=== PATIENT | male | born 1995 | race Caucasian/White ===

== ENCOUNTER 2018-02-14 15:47 | Emergency (ER) | payer BC ==
[2018-02-14 16:07] VITALS: BP 137/73
--- NOTE | 2018-02-14 16:27 | UC ---
Epistaxis Nasal HPI - HPI Summary HPI Summary: This is a 23-year-old male who was hit in the nose last p.m. at [address] with a line [address] while playing softball. He was hit in the nose and sustained a vertical laceration over his nasal bridge. So had bilateral epistaxis. He denies loss of consciousness. Denies any other injury. There is no neck pain. The shot is up-to-date. As a history of a nasal fracture as a child. Today he has black eyes bilaterally. He no longer has any nasal bleeding. - History of Current Complaint Chief Complaint: UCLaceration Stated Complaint: NOSE INJURY Time Seen by Provider: 02/14/18 16:14 Hx Obtained From: Patient Onset/Duration: Sudden Onset Timing: Constant Severity Initially: Moderate Severity Currently: Mild Pain Intensity: 4 Pain Scale Used: 0-10 Numeric Character: Heavy Aggravating Factor(s): Nasal Trauma Alleviating Factor(s): Pressure, Position Associated Signs And Symptoms: Positive: Bruising - Allergies/Home Medications Allergies/Adverse Reactions: Allergies Allergy/AdvReac Type Severity Reaction Status Date / Time No Known Allergies Allergy Verified 02/14/18 16:04 Home Medications: Home Medications Ibuprofen TAB* [Motrin TAB* 800 MG] 800 mg PO ONCE 02/14/18 [History Confirmed 02/14/18] PMH/Surg Hx/FS Hx/Imm Hx - Surgical History Surgical History: None - Family History Known Family History: Positive: Hypertension - Social History Alcohol Use: None Substance Use Type: None Smoking Status (MU): Never Smoked Tobacco Review of Systems Constitutional: Negative Skin: Bruising Eyes: Negative ENT: Epistaxis Respiratory: Negative Cardiovascular: Negative Gastrointestinal: Negative Genitourinary: Negative Motor: Negative Neurovascular: Negative Musculoskeletal: Negative Neurological: Negative Psychological: Negative Is Patient Immunocompromised?: No All Other Systems Reviewed And Are Negative: Yes Physical Exam Triage Information Reviewed: Yes Appearance: Well-Appearing, No Pain Distress, Well-Nourished Vital Signs: Initial Vital Signs Temp 98 F 02/14/18 16:02 Pulse 59 02/14/18 16:02 Resp 17 02/14/18 16:02 BP 137/73 02/14/18 16:02 Pulse Ox 100 02/14/18 16:02 Vital Signs Reviewed: Yes Eyes: Positive: Conjunctiva Clear, Other: - No hyphema. Does have bilateral INFRA orbital ecchymosis. ENT: Positive: Hearing grossly normal, Nasal congestion - Dried blood in both nares, TMs normal, Uvula midline. Negative: Nasal drainage, Tonsillar swelling , Tonsillar exudate, Muffled voice, Hoarse voice, Sinus tenderness Neck: Positive: Supple, Nontender Respiratory: Positive: Lungs clear, Normal breath sounds, No respiratory distress Cardiovascular: Positive: RRR, No Murmur Musculoskeletal: Positive: ROM Intact, No Edema Neurological: Positive: Alert Psychological Exam: Normal Skin Exam: Other - SEE IMAGE Procedures - Laceration/Wound Repair 1 Location: Other - nose Description: Linear Anesthesia: Local, 1.0%, Lido Length, Depth and Shape: 5mm length, linear, 2-3 mm deep Betadine Prep?: Yes Irrigated w/ Saline (ccs): 200 Laceration/Wound Explored: clean Closure: Single Layer Suture Type: Nylon - 6-0 Number of Sutures: 3 Layer Closure?: No Sterile Dressing Applied?: Yes Diagnostics - Radiology No standard instances Xray Interpretation: Positive (See Comments) - Bilateral nasal bone fractures with only 1 mm inferior displacement/impaction of the distal fragments. Overlying soft tissue swelling. Negative for subcutaneous emphysema. No additional facial fractures visualized Radiology Interpretation Completed By: Radiologist Epistaxis Nasal Course/Dx - Differential Dx/Diagnosis Provider Diagnoses: open nasal bone fracture. laceration repair (nose) Discharge - Sign-Out/Discharge Documenting (check all that apply): Discharge/Admit/Transfer - Discharge Plan Condition: Stable Disposition: HOME Prescriptions: Cephalexin CAP* [Keflex CAP*] 500 mg PO QID #28 cap Patient Education Materials: Nasal Fracture (ED), Facial Laceration (ED) Referrals: Oscar Parnell MD [Medical Doctor] - As Soon As Possible (call tomorrow. try to make appt for within a week) Additional Instructions: you have an open fracture of your nasal bone ice packs AFRIN nasal spray 2 sprays each nostril three times daily for three days tylenol or advil take antibiotic as directed I suggest you follow up with an ENT specialist return here in 5 days for suture removal gently clean twice daily with soap and water thin film of antibiotic oint ( I like aquafour healing ointment) keep covered at work RETURN FOR NEW OR WORSENING SYMPTOMS - Billing Disposition and Condition Condition: STABLE Disposition: Home Images Head: 1 - 5 mm lac, no septal hematoma,bilat black eyes
[2018-02-14] MEDS ORDERED: Lidocaine 1%* 5 ML VIAL INJ ONE (16:30)
--- NOTE | 2018-02-14 17:59 | RAD ---
Indication: Laceration across the bridge of nose following injury. Soft tissue swelling. Comparison: No relevant prior exams available on the [facility] PACS for comparison. Technique: Routine views of the nasal bones. REPORT AND IMPRESSION: Bilateral nasal bone fractures with only 1 mm inferior displacement/impaction of the distal fragments. Overlying soft tissue swelling. Negative for subcutaneous emphysema. No additional facial fractures visualized.
== END 2018-02-14 18:13 | disposition home or self-care (01) ==
LOC: UCCORT 15:47
DX: S02.2XXB Fracture of nasal bones, initial encounter for open fracture (principal); W21.07XA Struck by softball, initial encounter; Y93.64 Activity, baseball; Y92.9 Unspecified place or not applicable
CPT/HCPCS: 12011; 70160; 99212; G0463

== ENCOUNTER 2018-02-20 18:13 | Emergency (ER) | payer BC ==
[2018-02-20 18:23] VITALS: BP 146/75
--- NOTE | 2018-02-20 18:46 | UC ---
HPI Wound/Suture Re-check - HPI Summary HPI Summary: comes for suture removal, which were placed 6 days ago. No complaints. - History Of Current Complaint Chief Complaint: UCLaceration Stated Complaint: SUTURE REMOVAL Time Seen by Provider: 02/20/18 18:19 Hx Obtained From: Patient Onset/Duration: Sudden Onset, Lasting Days Severity: Mild Pain Intensity: 0 - Allergies/Home Medications Allergies/Adverse Reactions: Allergies Allergy/AdvReac Type Severity Reaction Status Date / Time No Known Allergies Allergy Verified 02/20/18 18:21 Home Medications: Home Medications Melatonin/Pyridoxine HCl (B6) [Melatonin] 1 tab PO BEDTIME 02/20/18 [History Confirmed 02/20/18] PMH/Surg Hx/FS Hx/Imm Hx Previously Healthy: Yes - Surgical History Surgical History: None - Family History Known Family History: Positive: Hypertension - Social History Alcohol Use: None Substance Use Type: None Smoking Status (MU): Never Smoked Tobacco Review of Systems Constitutional: Negative All Other Systems Reviewed And Are Negative: Yes Physical Exam Triage Information Reviewed: Yes Vital Signs: Initial Vital Signs Temp 98.7 F 02/20/18 18:18 Pulse 55 02/20/18 18:18 Resp 17 02/20/18 18:18 BP 146/75 02/20/18 18:18 Pulse Ox 100 02/20/18 18:18 Vital Signs Reviewed: Yes Eyes: Positive: Conjunctiva Clear ENT: Positive: Hearing grossly normal, Other - hematoma on inferior orbital ridge b/l. Small echymosis on bridge of nose Neck: Positive: Supple, Nontender Respiratory: Positive: Chest non-tender Cardiovascular: Positive: Pulses Normal, Brisk Capillary Refill Course/Dx - Course Course Of Treatment: 3 sutures removed without complications. f/u PCP monitor BP - Differential Dx - Laceration/Wound Provider Diagnoses: Suture removal. Elevated BP without history of HTN Discharge - Sign-Out/Discharge Documenting (check all that apply): Discharge/Admit/Transfer - Discharge Plan Condition: Stable Disposition: HOME Patient Education Materials: Stitches Removal (ED) Referrals: [facility] [Outside] No Primary Care Phys,NOPCP [Primary Care Provider] - - Billing Disposition and Condition Condition: STABLE Disposition: Home Images Head: 1 - linear scar 0.8 cm in length with 3 sutures
== END 2018-02-20 18:48 | disposition home or self-care (01) ==
LOC: UCCORT 18:13
DX: T14.8XXD Other injury of unspecified body region, subsequent encounter (principal); R03.0 Elevated blood-pressure reading, without diagnosis of hypertension